=== PATIENT | male | born 1975 | race Caucasian/White ===

== ENCOUNTER 2017-06-18 11:01 | Inpatient (IN) | payer MEDICAID, OTHER ==
[2017-06-18] VITALS (15 sets, daily range): BP systolic 122–185; BP diastolic 80–97
[~2017-06-18] VITALS: Ht 172.7 cm; Wt 86.2 kg
[~2017-06-18 11:01] MED LIST: LOSA50TA3 PO; METO-539 PO; NIFE30TA94 PO; REN800 PO; RISP05 PO
[2017-06-18 11:50] LABS: BASOPHILS % 2.6 % (0.0-2.0); EOSINOPHILS % 2.5 % (0.0-5.0); HEMATOCRIT. 22.6 % (42.0-52.0); HEMOGLOBIN. 7.3 g/dL (14.0-18.0); LYMPHOCYTES % 7.6 % (20.0-50.0); MEAN CORPUSCULAR VOLUME 92.8 fL (80.0-94.0); MONOCYTES % 10.5 % (2.0-8.0); NEUTROPHILS % 76.8 % (40.0-76.0); PLATELET 374 x1000/uL (130-400); RED BLOOD CELL COUNT 2.44 mill/uL (4.7-6.1); RED CELL DISTRIBUTION WIDTH 15.9 % (11.6-14.6)
[2017-06-18 11:54] LABS: CHLORIDE 100 mEq/L (98-107)
[2017-06-18 11:55] LABS: INR 1.1; PROTHROMBIN TIME 11.9 sec (9.4-11.6)
[2017-06-18] MEDS ORDERED: SODIUM BICARBONATE 4% (2.4MEQ) 5ML VIAL IV ONE (13:01)
[2017-06-18] MEDS ORDERED: HEPARIN 1000 UNITS/ML 10ML ONE (13:01)
[2017-06-18] MEDS ORDERED: IOHEXOL-300 100 ML BOTTLE ONE (13:17)
[2017-06-18] MEDS ORDERED: FENTANYL CITRATE/PF 50MCG/ML 2ML VIAL ONE (13:23)
[2017-06-18] MEDS ORDERED: FENTANYL CITRATE/PF 50MCG/ML 2ML VIAL IV ONE (14:00)
[2017-06-18] MEDS ORDERED: NA PHOS,M-B/NA PHOS,DI-BA ENEMA 118ML PR PRN (15:15)
[2017-06-18] MEDS ORDERED: LORAZEPAM 0.5MG TABLET PO PRN (15:15)
[2017-06-18] MEDS ORDERED: TRAMADOL 50MG TABLET PO PRN (15:15)
[2017-06-18] MEDS ORDERED: ACETAMINOPHEN 325MG TABLET PO PRN (15:15)
[2017-06-18] MEDS ORDERED: GUAIFENESIN 200MG/10ML SUGAR FREE UDC PO PRN (15:15)
[2017-06-18] MEDS ORDERED: MAGNESIUM/ALUMINUM HYDROXIDE/SIMETHICONE 30ML UDC PO PRN (15:15)
[2017-06-18] MEDS ORDERED: CLONIDINE 0.1MG TABLET PO PRN (15:15)
[2017-06-18] MEDS ORDERED: IPRATROPIUM/ALBUTEROL 0.5-3(2.5)MG/3ML NEB INH PRN (15:15)
[2017-06-18] MEDS ORDERED: NITROGLYCERIN 0.4MG TABLET SL SL PRN (15:15)
[2017-06-18] MEDS ORDERED: DOCUSATE SODIUM 100MG CAPSULE PO PRN (15:15)
[2017-06-18] MEDS ORDERED: ONDANSETRON HCL 4MG/2ML INJ IV PRN (15:15)
[2017-06-18] MEDS ORDERED: DIPHENHYDRAMINE 50MG/ML VIAL IV PRN (15:15)
[2017-06-18] MEDS ORDERED: SEVELAMER CARBONATE 800 MG TABLET PO SCH (17:00)
[2017-06-18] MEDS ORDERED: ALBUTEROL (0.083%) 2.5MG/3ML NEB HHN SCH (18:30)
[2017-06-18] MEDS ORDERED: PNEUMOC 13-VAL CONJ-DIP CRM/PF 0.5 ML DISP.SYRIN IM ONE (20:00)
[2017-06-18] MEDS ORDERED: ENOXAPARIN 30MG/0.3ML SYR SUBCUT SCH (20:00)
[2017-06-18] MEDS: POLYETHYLENE GLYCOL 3350 (17GM) 1 DOSE PACK PO SCH (20:00)
[2017-06-18] MEDS ORDERED: INFLUENZA VIRUS VACCINE(AFLURIA) 0.5ML SYR IM ONE (20:00)
[2017-06-18] MEDS ORDERED: ZOLPIDEM TARTRATE 5MG TABLET PO PRN (21:00)
[2017-06-18] MEDS ORDERED: FAMOTIDINE 20MG/2ML VIAL IV SCH (21:00)
[2017-06-18] MEDS: SEVELAMER CARBONATE 800 MG TABLET PO SCH (23:10)
[2017-06-18] MEDS: RISPERIDONE 0.5MG TABLET PO SCH (23:11)
[2017-06-18] MEDS: LOSARTAN POTASSIUM 50 MG TABLET PO SCH (23:14)
[2017-06-18] MEDS: DOCUSATE SODIUM 100MG CAPSULE PO SCH (23:16)
[2017-06-18 23:40] LABS: CREATINE KINASE 34 IU/L (39-308)
[2017-06-18 23:41] LABS: CREATINE KINASE MB FRACTION 0.8 ng/mL (0.5-3.6)
[2017-06-19] VITALS: BP 139/77
[2017-06-19 04:00] VITALS: BP 142/52
[2017-06-19 06:30] LABS: BASOPHILS % 3.7 % (0.0-2.0); EOSINOPHILS % 4.4 % (0.0-5.0); HEMOGLOBIN. 7.5 g/dL (14.0-18.0); LYMPHOCYTES % 14.8 % (20.0-50.0); MEAN CORPUSCULAR VOLUME 92.5 fL (80.0-94.0); MEAN PLATELET VOLUME 7.3 fl (7.4-10.4); MONOCYTES % 13.4 % (2.0-8.0); NEUTROPHILS % 63.7 % (40.0-76.0); PLATELET 328 x1000/uL (130-400); RED BLOOD CELL COUNT 2.49 mill/uL (4.7-6.1)
[2017-06-19 07:08] LABS: CHLORIDE 100 mEq/L (98-107)
[2017-06-19 07:13] LABS: CREATINE KINASE 35 IU/L (39-308); CREATINE KINASE MB FRACTION 0.8 ng/mL (0.5-3.6); PHOSPHORUS 5.8 mg/dL (2.5-4.9)
[2017-06-19 08:10] VITALS: BP 170/95
[2017-06-19] MEDS: LOSARTAN POTASSIUM 50 MG TABLET PO SCH (08:48)
[2017-06-19] MEDS: SEVELAMER CARBONATE 800 MG TABLET PO SCH ×2 (08:48→12:07)
[2017-06-19] MEDS: RISPERIDONE 0.5MG TABLET PO SCH (08:49)
[2017-06-19] MEDS: POLYETHYLENE GLYCOL 3350 (17GM) 1 DOSE PACK PO SCH (08:50)
[2017-06-19] MEDS: DOCUSATE SODIUM 100MG CAPSULE PO SCH (08:50)
[2017-06-19] MEDS ORDERED: FOLIC ACID/VITAMIN B COMP W-C TABLET PO SCH (09:00)
[2017-06-19 12:36] VITALS: BP 146/77
[2017-06-19 17:27] VITALS: BP 166/91
[2017-06-19] MEDS ORDERED: EPOETIN ALFA 10000UNITS/ML VIAL SUBCUT SCH (21:00)
== END 2017-06-19 18:45 | disposition home or self-care (01) | DRG 466 ==
LOC: ER 11:08 → 6WST 14:30 → ENRESERV 16:44
PROVIDERS: ADMIT Internal Medicine; ATTEND Internal Medicine
PROC: B51W1ZZ Fluoroscopy of Dialysis Shunt/Fistula using Low Osmolar Contrast (ICD-10-PCS; principal; 2017-06-18)
PROC: 5A1D70Z Performance of Urinary Filtration, Intermittent, Less than 6 Hours Per Day (ICD-10-PCS; 2017-06-18)
PROC: B5181ZZ Fluoroscopy of Superior Vena Cava using Low Osmolar Contrast (ICD-10-PCS; 2017-06-18)
PROC: B31N1ZZ Fluoroscopy of Other Upper Arteries using Low Osmolar Contrast (ICD-10-PCS; 2017-06-18)
DX: T82.590A Other mechanical complication of surgically created arteriovenous fistula, initial encounter (principal); N18.6 End stage renal disease; E43 Unspecified severe protein-calorie malnutrition; I13.2 Hypertensive heart and chronic kidney disease with heart failure and with stage 5 chronic kidney disease, or end stage renal disease; N25.81 Secondary hyperparathyroidism of renal origin; D63.8 Anemia in other chronic diseases classified elsewhere; J44.1 Chronic obstructive pulmonary disease with (acute) exacerbation; I50.9 Heart failure, unspecified; Y71.2 Prosthetic and other implants, materials and accessory cardiovascular devices associated with adverse incidents; E87.1 Hypo-osmolality and hyponatremia; F41.9 Anxiety disorder, unspecified; I87.1 Compression of vein; Z82.49 Family history of ischemic heart disease and other diseases of the circulatory system; Z87.01 Personal history of pneumonia (recurrent); Z87.891 Personal history of nicotine dependence; Z99.2 Dependence on renal dialysis; Z79.899 Other long term (current) drug therapy; Z68.28 Body mass index [BMI] 28.0-28.9, adult
CPT/HCPCS: 36415; 36901; 71045; 76937; 80048; 80061; 82550; 82553; 84100; 84484; 90670; 90686; 93005; 93970; 99285; C1725; C1766; C1769; C1887; J0885; J1644; J3010; J3490; J7030; J7050; Q9967